=== PATIENT | male | born 1990 | race Caucasian/White ===

== ENCOUNTER 2017-02-26 12:40 | Observation (INO) | payer BC ==
[~2017-02-26 12:40] MED LIST: DEXAMETHASONE SOD PHOSPHATE INJ 4 MG/1 ML VIAL ONE; GLYCOPYRROLATE INJ 0.4 MG/2 ML VIAL ONE; LIDOCAINE 2% INJ-PF (20 MG/ML) 10 ML AMPUL ONE; NEOSTIGMINE METHYLSULFATE 10 MG/10 ML VIAL ONE; ONDANSETRON HCL INJ/PF 4 MG/2 ML SDV ONE; ROCURONIUM BROMIDE INJ 50 MG/5 ML VIAL IV ONE; SUCCINYLCHOLINE CHLORIDE INJ 200 MG/10 ML VIAL ONE
--- NOTE | 2017-02-26 13:16 | ER Document Report ---
ED Medical Screen (RME) - General Chief Complaint: Abdominal Pain Stated Complaint: ABDOMINAL PAIN TRAVEL OUTSIDE OF THE [place] IN LAST 30 DAYS: No - HPI Patient complains to provider of: Abdominal Pain Onset: Other - Since , left upper quadrant pain no right lower quadrant pain. Was seen at walk-in clinic for this isolated 6/10 pain right lower quadrant told he may have appendicitis and the CAT scan. Patient has been eating drinking appropriately negative for nausea no fever normal bowel movements last bowel movement this morning. Patient able to jump in the air and landed on his heels. Has no focal tenderness on my palpation. Denies any flank pain history of kidney stones or hematuria - Related Data Allergies/Adverse Reactions: Penicillins Allergy (Verified 02/26/17 12:50) Past Medical History Renal/ Medical History: Denies: Hx Peritoneal Dialysis Surgical Hx: Negative Physical Exam - Vital signs Vitals: Temp Pulse Resp BP Pulse Ox 97.7 F 65 18 122/78 100 02/26/17 12:49 02/26/17 12:49 02/26/17 12:49 02/26/17 12:49 02/26/17 12:49 - Abdominal Inspection: Normal Distension: No distension Bowel sounds: Normal Tenderness: No: McBurney's point, Heart's sign, Guarding, Rebound Course - Vital Signs Vital signs: Temp Pulse Resp BP Pulse Ox 97.7 F 65 18 122/78 100 02/26/17 12:49 02/26/17 12:49 02/26/17 12:49 02/26/17 12:49 02/26/17 12:49
[2017-02-26] MEDS ORDERED: NORMAL SALINE 1000 ML 1,000 ML IV ONE (13:34)
[2017-02-26 13:36] LABS: ABSOLUTE EOSINOPHILS # (AUTO) 0.2 10^3/uL (0.0-0.6); ABSOLUTE LYMPHOCYTES (AUTO) 2.1 10^3/uL (0.5-4.7); ABSOLUTE MONOCYTES (AUTO) 0.9 10^3/uL (0.1-1.4); ABSOLUTE NEUT (AUTO) 5.8 10^3/uL (1.7-8.2); BASOPHILS % (AUTO) 0.5 % (0-2); EOSINOPHILS % (AUTO) 2.1 % (0-6); HEMOGLOBIN 15.1 g/dL (13.5-17.0); HGB HCT DIFFERENCE 2.3; LYMPHOCYTES % (AUTO) 23.5 % (13-45); MEAN CORPUSCULAR HEMOGLOBIN 30.6 pg (27.0-33.4); MEAN CORPUSCULAR HGB CONC 35.2 g/dL (32.0-36.0); MEAN CORPUSCULAR VOLUME 87 fl (80-97); MONOCYTES % (AUTO) 10.1 % (3-13); RED BLOOD COUNT 4.94 10^6/uL (4.35-5.55); RED CELL DISTRIBUTION WIDTH 12.7 % (11.5-14.0); SEGMENTED NEUTROPHILS % (AUTO) 63.8 % (42-78); WHITE BLOOD COUNT 9.1 10^3/uL (4.0-10.5)
--- NOTE | 2017-02-26 13:36 | ER Document Report ---
ED GI/ - General Chief Complaint: Abdominal Pain Stated Complaint: ABDOMINAL PAIN Time Seen by Provider: 02/26/17 13:27 Mode of Arrival: Ambulatory Information source: Patient Notes: Patient reports a 3 day history of abdominal pain that started 2 middle upper abdomen and then localized to right lower quadrant yesterday. Patient states that he was supposed to set up for an outpatient CT scan to rule out possible appendicitis but was unable to have the study performed due to a mixup with the order. Patient denies any fever, nausea, vomiting, or diarrhea. Patient denies any urinary symptoms. Patient states that pain is worse when he lies supine. Patient states that he has a constant dull pain that will occasionally get sharp with movement. Patient states that his appetite has been normal. TRAVEL OUTSIDE OF THE [place] IN LAST 30 DAYS: No - HPI Patient complains to provider of: Abdominal pain. No: Diarrhea, Dysuria, Vomiting Onset: Other - 3 days Timing/Duration: Persistent Quality of pain: Achy, Sharp Pain Level: 2 Location: RLQ. No: Left testicle, Right testicle Associated symptoms: denies: Constipation, Diarrhea, Dysuria, Fever, Loss of appetite, Nausea, Urinary hesitancy, Urinary frequency, Urinary retention, Urinary urgency, Vomiting Exacerbated by: Supine, Movement Relieved by: Denies Similar symptoms previously: No Recently seen / treated by doctor: Yes - Related Data Allergies/Adverse Reactions: Penicillins Allergy (Verified 02/26/17 12:50) Past Medical History - General Information source: Patient - Social History Smoking Status: Never Smoker Frequency of alcohol use: Occasional Drug Abuse: None Occupation: farming Family History: Reviewed & Not Pertinent - Medical History Medical History: Negative Renal/ Medical History: Denies: Hx Peritoneal Dialysis Surgical Hx: Negative Review of Systems - Review of Systems Constitutional: No symptoms reported. denies: Fever, Recent illness EENT: No symptoms reported Cardiovascular: No symptoms reported. denies: Chest pain Respiratory: No symptoms reported. denies: Cough, Short of breath Gastrointestinal: Abdominal pain. denies: Diarrhea, Nausea, Vomiting, Constipation, Poor appetite Genitourinary: No symptoms reported. denies: Dysuria, Flank pain Male Genitourinary: No symptoms reported Musculoskeletal: No symptoms reported. denies: Back pain Skin: No symptoms reported Hematologic/Lymphatic: No symptoms reported Neurological/Psychological: No symptoms reported Physical Exam - Vital signs Vitals: Temp Pulse Resp BP Pulse Ox 97.7 F 65 18 122/78 100 02/26/17 12:49 02/26/17 12:49 02/26/17 12:49 02/26/17 12:49 02/26/17 12:49 - General General appearance: Appears well, Alert In distress: None - HEENT Head: Normocephalic, Atraumatic Eyes: Normal Conjunctiva: Normal Nasal: Normal Mouth/Lips: Normal Mucous membranes: Normal Neck: Normal, Supple. No: Lymphadenopathy - Respiratory Respiratory status: No respiratory distress Chest status: Nontender Breath sounds: Normal. No: Rales, Rhonchi, Stridor, Wheezing Chest palpation: Normal - Cardiovascular Rhythm: Regular Heart sounds: S1 appreciated, S2 appreciated Murmur: No - Abdominal Inspection: Normal Distension: No distension Bowel sounds: Normal Tenderness: Tender, McBurney's point. No: Guarding Organomegaly: No organomegaly - Back Back: Normal, Nontender. No: CVA tenderness - Extremities General upper extremity: Normal inspection, Nontender, Normal ROM General lower extremity: Normal inspection, Nontender, Normal ROM - Neurological Neuro grossly intact: Yes Cognition: Normal Elmer Coma Scale Eye Opening: Spontaneous Elmer Coma Scale Verbal: Oriented Elmer Coma Scale Motor: Obeys Commands Elmer Coma Scale Total: 15 - Psychological Associated symptoms: Normal affect, Normal mood - Skin Skin Temperature: Warm Skin Moisture: Dry Skin Color: Normal Course - Re-evaluation Re-evalutation: 02/26/17 15:[address] Nicole who agrees to evaluate pt. Dr Nicole advises starting pt on levaquin 750 mg and flagyl [address] iv[address] consulted with [address] Ray per [facility] protocol. 02/26/17 15:37 Pt updated regarding plan of care. Denies any needs or concerns at present. 02/26/17 16:07 Dr Nicole to bedside - Vital Signs Vital signs: Temp Pulse Resp BP Pulse Ox 97.7 F 65 18 122/78 100 02/26/17 12:49 02/26/17 12:49 02/26/17 12:49 02/26/17 12:49 02/26/17 12:49 - Laboratory Result Diagrams: 02/26/17 13:20 02/26/17 13:20 Laboratory results interpreted by me: 02/26/17 13:20 Glucose 63 L Total Protein 8.6 H Albumin 5.1 H Labs- Entire Visit 02/26/17 02/26/17 02/26/17 13:20 13:20 13:20 WBC 9.1 RBC 4.94 Hgb 15.1 Hct 43.0 MCV 87 MCH 30.6 MCHC 35.2 RDW 12.7 Plt Count 185 Seg Neutrophils % 63.8 Lymphocytes % 23.5 Monocytes % 10.1 Eosinophils % 2.1 Basophils % 0.5 Absolute Neutrophils 5.8 Absolute Lymphocytes 2.1 Absolute Monocytes 0.9 Absolute Eosinophils 0.2 Absolute Basophils 0.0 Sodium 142.7 Potassium 4.2 Chloride 103 Carbon Dioxide 27 Anion Gap 13 BUN 13 Creatinine 0.96 Est GFR ( Amer) > 60 Est GFR (Non-Af Amer) > 60 Glucose 63 L Calcium 10.1 Total Bilirubin 0.6 Direct Bilirubin 0.3 Indirect Bilirubin Not Reportable Neonat Total Bilirubin Not Reportable AST 22 ALT 29 Alkaline Phosphatase 52 Total Protein 8.6 H Albumin 5.1 H Lipase 60.5 Urine Color YELLOW Urine Appearance CLEAR Urine pH 5.0 Ur Specific [place] 1.030 Urine Protein NEGATIVE Urine Glucose (UA) NEGATIVE Urine Ketones NEGATIVE Urine Blood NEGATIVE Urine Nitrite NEGATIVE Urine Bilirubin NEGATIVE Urine Urobilinogen NEGATIVE Ur Leukocyte Esterase NEGATIVE Urine WBC (Auto) 1 Urine Mucus (Auto) RARE Urine Ascorbic Acid NEGATIVE 02/26/17 16:07 - Diagnostic Test Radiology reviewed: Reports reviewed Discharge - Discharge Clinical Impression: Appendicitis Qualifiers: Appendicitis type: acute appendicitis Acute appendicitis type: unspecified acute appendicitis type Qualified Code(s): K35.80 - Unspecified acute appendicitis Abdominal pain Qualifiers: Abdominal location: right lower quadrant Qualified Code(s): R10.31 - Right lower quadrant pain Condition: Stable Disposition: ADMITTED OBSERVATION Admitting Provider: Surgicalist Unit Admitted: Medical Floor
[2017-02-26 13:49] LABS: APPEARANCE,URINE CLEAR; BILIRUBIN,URINE NEGATIVE (NEGATIVE); GLUCOSE, URINE NEGATIVE (NEGATIVE); KETONES,URINE NEGATIVE (NEGATIVE); LEUKOCYTE ESTERASE,URINE NEGATIVE (NEGATIVE); NITRITE,URINE NEGATIVE (NEGATIVE); PROTEIN,URINE NEGATIVE (NEGATIVE); UROBILINOGEN,URINE NEGATIVE mg/dL (<2.0)
[2017-02-26 13:59] LABS: ALANINE AMINOTRANSFERASE 29 U/L (21-72); ALBUMIN 5.1 g/dL (3.5-5.0); ALKALINE PHOSPHATASE 52 U/L (38-126); ANION GAP 13 (5-19); ASPARTATE AMINO TRANSFERASE 22 U/L (17-59); BILIRUBIN,DIRECT 0.3 mg/dL (0.0-0.4); BILIRUBIN,TOTAL 0.6 mg/dL (0.2-1.3); BLOOD UREA NITROGEN 13 mg/dL (7-20); CALCIUM 10.1 mg/dL (8.4-10.2); CARBON DIOXIDE 27 mmol/L (22-30); CHLORIDE 103 mmol/L (98-107); CREATININE RESULT 0.96 mg/dL (0.52-1.25); GLUCOSE 63 mg/dL (75-110); LIPASE 60.5 U/L (23-300); POTASSIUM 4.2 mmol/L (3.6-5.0); SODIUM 142.7 mmol/L (137-145); TOTAL PROTEIN 8.6 g/dL (6.3-8.2)
[2017-02-26] MEDS ORDERED: DEXTROSE 5%-NORMAL SALINE 1,000 ML IV ONE (14:11)
--- NOTE | 2017-02-26 15:20 | RADIOLOGY REPORT (SQ) ---
EXAM DESCRIPTION: CT ABD/PELVIS WITH IV ONLY COMPLETED DATE/TIME: 02/26/2017 3:03 pm REASON FOR STUDY: RLQ pain COMPARISON: None. TECHNIQUE: CT scan of the abdomen and pelvis performed using helical scanning technique with dynamic intravenous contrast injection. No oral contrast. Images reviewed with lung, soft tissue, and bone windows. Reconstructed coronal and sagittal MPR images reviewed. Delayed images for evaluation of the urinary system also acquired. All images stored on PACS. All CT scanners at this facility use dose modulation, iterative reconstruction, and/or weight based d osing when appropriate to reduce radiation dose to as low as reasonably achievable (ALARA). [facility]: Dose Right [facility]: CareDose [facility]: Dose Right [facility]: Teradose 4D [facility]: Klee Data System CONTRAST TYPE AND DOSE: contrast/concentration: Isovue 370.00 mg/ml; Total Contrast Delivered: 100.0 ml; Total Saline Delivered: 72.0 ml RENAL FUNCTION: BUN 13; creatinine 0.96 RADIATION DOSE: Up-to-date CT equipment and radiation dose reduction techniques were employed. CTDIv ol: 12.2 - 16.7 mGy. DLP: 1621 mGy-cm.. LIMITATIONS: None. FINDINGS: LOWER CHEST: No significant findings. No nodules or infiltrates. LIVER: Normal size. No masses. No dilated ducts. SPLEEN: Normal size. No focal lesions. PANCREAS: No masses. No significant calcifications. No adjacent inflammation or peripancreatic fluid collections. Pancreatic duct not dilated. GALLBLADDER: Largely decompressed. No identified stones by CT criteria. No inflammatory changes to s uggest cholecystitis. ADRENAL GLANDS: No significant masses or asymmetry. RIGHT KIDNEY AND URETER: No solid masses. No significant calcifications. No hydronephrosis or hyd roureter. LEFT KIDNEY AND URETER: No solid masses. No significant calcifications. No hydronephrosis or hydr oureter. AORTA AND VESSELS: No aneurysm. No dissection. Renal arteries, SMA, celiac without stenosis. RETROPERITONEUM: No retroperitoneal adenopathy, hemorrhage or masses. BOWEL AND PERITONEAL CAVITY: Pericecal and periappendiceal inflammatory changes are present; the appe ndix is dilated, measuring up to 1.2 cm orthogonally. No evidence of abscess or free air. The remai elle bowel appears normal. PELVIS: No mass. No free fluid. Normal bladder. ABDOMINAL WALL: No masses. No hernias. 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 OTHER: No other significant finding. IMPRESSION: Early appendicitis; no evidence of complication (abscess or free air). TECHNICAL DOCUMENTATION: JOB ID: [id number] Quality ID # [id number]: Final reports with documentation of one or more dose reduction techniques (e.g., Au tomated exposure control, adjustment of the mA and/or kV according to patient size, use of iterative reconstruction technique) 2010 [email or web address]- All Rights Reserved
[2017-02-26] MEDS ORDERED: LEVOFLOXACIN RTU 750 MG/D5W 150 ML IV ONE (15:34)
[2017-02-26] MEDS ORDERED: METRONIDAZOLE 500 MG/NS RTU 100 ML IV ONE (15:34)
[2017-02-26] MEDS ORDERED: MIDAZOLAM 2 MG/2 ML INJ ONE (16:38)
[2017-02-26] MEDS ORDERED: FENTANYL CITRATE INJ/PF 100 MCG/2 ML AMPUL ONE (16:38)
[2017-02-26] MEDS ORDERED: HYDROMORPHONE HCL INJ/PF 2 MG/ML AMPULE ONE (16:38)
[2017-02-26] MEDS ORDERED: ACETAMINOPHEN 100 ML IV ONE (16:39)
[2017-02-26] MEDS ORDERED: PROPOFOL INJ 200 MG/20 ML VIAL IV ONE (16:39)
[2017-02-26] MEDS ORDERED: BUPIVACAINE HCL 0.25 % INJ/PF (2.5 MG/1 ML) 30 ML VIAL ONE (16:44)
--- NOTE | 2017-02-26 17:13 | HISTORY AND PHYSICAL E ---
History and Physical NAME: TAYLER HER : 1990 AGE: 26Y ADMITTED: 02/26/2017 ROOM: ED21 HISTORY OF PRESENT ILLNESS: Consultation from emergency room. Patient presenting with a history of abdominal pain for the last 2 days and some nausea, no vomiting. PAST MEDICAL PROBLEMS: There are no other major medical problems. ALLERGIES: PENICILLIN. PAST SURGICAL HISTORY: None. FAMILY HISTORY: Nothing relevant. REVIEW OF SYSTEMS: As per examination. PHYSICAL EXAMINATION: GENERAL: Pale gentleman not in any distress. VITAL SIGNS: Temperature 97.7, heart rate is 76, blood pressure 122/78. HEAD AND NECK: No lymphadenopathy. No masses. RESPIRATORY: Both lungs were clear to auscultation. CARDIOVASCULAR: Both heart sounds are regular. No murmurs. No gallops. ABDOMEN: There is a soft abdomen. No distension. Tenderness present in the right lower quadrant area. No palpable hernia. LABORATORY DATA: CT scan reviewed which revealed an inflamed appendix with dilation. IMPRESSION: Acute appendicitis. PLAN: N.P.O., IV hydration, IV antibiotics started, Levaquin and Flagyl. Plan for emergent laparoscopic appendectomy. Discussed with the patient and the patient's family about indications. They agree with the plan of management. DICTATING PHYSICIAN: RIVER DAVIS M.D. [id number] PHY#: [id number] ID: [id number] JOB#: [id number] ACCT: [id number] cc:NO Ej COOK
[2017-02-26] MEDS ORDERED: ONDANSETRON HCL INJ/PF 4 MG/2 ML SDV IV PRN ×2 (17:18→18:10)
[2017-02-26] MEDS ORDERED: FENTANYL CITRATE INJ/PF 100 MCG/2 ML AMPUL IV PRN ×3 (17:18)
[2017-02-26] MEDS ORDERED: MORPHINE SULFATE 10 MG/ML INJ IV PRN (17:18)
[2017-02-26] MEDS ORDERED: MEPERIDINE HCL/PF INJ 25 MG/1 ML DISP.SYRIN IV PRN (17:18)
[2017-02-26] MEDS ORDERED: PROMETHAZINE HCL INJ 25 MG/1 ML VIAL IV PRN (17:18)
[2017-02-26] MEDS ORDERED: DIPHENHYDRAMINE HCL 50 MG/ML VIAL IV PRN (17:18)
[2017-02-26] MEDS ORDERED: HYDROMORPHONE HCL INJ/PF 2 MG/ML AMPULE IV PRN (18:09)
[2017-02-26] MEDS ORDERED: POTASSI CL 20 MEQ/D5-1/2NS 1L 1000 ML IV PRN (18:11)
[2017-02-26] MEDS: METRONIDAZOLE 500 MG/NS RTU 100 ML IV SCH (22:02)
[2017-02-27] MEDS: HYDROCODONE/ACETAMINOPHEN 5-325 MG TABLET PO PRN ×2 (01:26→09:39)
[2017-02-27] MEDS: METRONIDAZOLE 500 MG/NS RTU 100 ML IV SCH (06:09)
[2017-02-27] MEDS ORDERED: LEVOFLOXACIN 750 MG/D5W RTU 750 MG/150 ML RTUPB IV SCH (10:00)
[2017-02-27 11:32] VITALS: BP 108/48
--- NOTE | 2017-02-27 13:14 | DISCHARGE SUMMARY E ---
Discharge Summary NAME: TAYLER HER : 1990 AGE: 26Y ADMITTED: 02/26/2017 DISCHARGED: 02/27/2017 ADMITTING DIAGNOSIS: Acute appendicitis. DISCHARGE DIAGNOSIS: Acute appendicitis. OPERATIVE PROCEDURE: Laparoscopic appendectomy. HOSPITAL COURSE: The patient presented to the emergency room with acute abdominal pain, tenderness, and the CT scan revealed acute appendicitis also, so I took him to the operating room yesterday, had a laparoscopic appendectomy. Today, he is feeling well, tolerating diet, ambulating, no fever, healing well. DISCHARGE PLAN: Discharge home with hydrocodone for pain and stool softeners. follow up in 2 weeks. At the time of discharge, the patient is doing well. DICTATING PHYSICIAN: RIVER DAVIS M.D. [id number] PHY#: [id number] ID: [id number] JOB#: [id number] ACCT: [id number] cc:Ej RAMOS MD, M.D. E. RAva [facility], > [facility]
--- NOTE | 2017-02-28 00:09 | OPERATIVE REPORT E ---
Operative Report NAME: TAYLER HER : 1990 AGE: 26Y DATE OF SURGERY: 02/26/2017 ROOM: 210 PREOPERATIVE DIAGNOSIS: Acute appendicitis. POSTOPERATIVE DIAGNOSIS: Acute appendicitis. OPERATION PROCEDURE: Laparoscopic appendectomy. SURGEON: RIVER DAVIS M.D. ANESTHESIA: General. BLOOD LOSS: Less than 5 mL. SPECIMENS: Appendix. HISTORY AND INDICATION: The patient presented with abdominal pain, of 2 days' duration, to the emergency room and the pain was located in the right lower quadrant area along with the tenderness and then also, CT scan revealed inflammation of the appendix, dilated appendix. Basically it was all acute appendicitis and I prepared him for an emergency appendectomy, started him on IV antibiotic of Levaquin and Flagyl, and then with informed consent, he was taken in the operating room. The patient was explained about indications, risks, benefits, and complications, including, but not limited to, infection, bleeding, pain, need for the time to resolve if he develops any sometimes further operations. He was taken to the operating room with informed consent. DESCRIPTION OF OPERATION: The patient was placed in the supine position, SCD boots. He was already given IV antibiotic, which were Levaquin and Flagyl and abdomen was cleaned and draped for sterile field. Initial access, left upper quadrant 5 mm trocar was inserted with Optiview and a Veress needle, and then a 12 mm trocar in the infraumbilical area, and then a 5 mm trocar in the suprapubic area under direct laparoscopic visualization. Findings: Appendix was grossly inflamed and dilated, but no rupture, no abscess. There was a mild amount of periappendiceal serous fluid, inflammatory fluid collection, which was drained out. After the appendix was mobilized after dividing the pericecal peritoneal attachments. The mesoappendix was divided carefully by using a Harmonic Scalpel to complete direct hemostasis. The appendix was divided close to the cecum by using a 45 staple line vascularity. Specimen was retrieved with an EndoCatch bag and then abdominal cavity, pericecal area, pericolic gutters, pelvic cavity, subhepatic areas, and some diaphragmatic areas irrigated and suctioned out completely until the effluent was absolutely clear, and no abscesses. Complete hemostasis. Then, all the trocars were removed. All the pneumoperitoneum was evacuated. Closure was 0-Vicryl for fascia, 3-0 and 4-0 Monocryl for the skin. Patient was stable. The operation occurred without any problem, sent straight to recovery room in a stable condition. DICTATING PHYSICIAN: RIVER DVAIS M.D. [id number] PHY#: [id number] ID: [id number] JOB#: [id number] ACCT: [id number] cc:RIVER DAVIS M.D. > [facility]
== END 2017-02-27 13:40 | disposition home or self-care (01) ==
LOC: ER 12:40 → UNDOADMOB 16:18 → INTOOBSV 16:18 → EH 16:18 → 2N 18:33 → EH 18:33 → 2N 18:39
PROC: 0DTJ4ZZ Resection of Appendix, Percutaneous Endoscopic Approach (ICD-10-PCS; principal; 2017-02-26 16:45)
DX: K35.80 Unspecified acute appendicitis (principal); Z88.0 Allergy status to penicillin
CPT/HCPCS: 44970; 99285; 96365; 96366; 96368; 36415; 83690; 85025; 80053; 81001; 88304 ×2; 74177; G0378 ×2; J2250; J3490 ×2; J1100; J3010; J1170; J3480; J0330; J2405; J7030; J2704; J1956 ×2; J0131; 840